=== PATIENT | male | born 1995 | race Caucasian/White ===

== ENCOUNTER 2019-07-10 01:05 | Emergency (ER) | payer OTHER ==
[~2019-07-10] VITALS: Ht 167.6 cm; Wt 86.2 kg
[2019-07-10 01:05] VITALS: BP 152/83
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
--- NOTE | 2019-07-10 01:05 | NUR ---
AMBUATED TO [facility]. ACCOMPANIED BY [facility].
[2019-07-10 01:30] VITALS: BP 152/83
--- NOTE | 2019-07-10 01:30 | NUR ---
PATIENT EXAMINED BY DR. YOUNGBLOOD. PATIENT MEDICALLY CLEARED AND RELEASED IN CUSTODY IN STABLE CONDITION. ORIGINAL PRE-BOOK FORM GIVEN TO [facility] OFFICER.
== END 2019-07-10 01:30 ==
LOC: MED 01:05
DX: S30.811A Abrasion of abdominal wall, initial encounter (principal); J45.909 Unspecified asthma, uncomplicated; V49.49XA Driver injured in collision with other motor vehicles in traffic accident, initial encounter; Y93.89 Activity, other specified; Y92.488 Other paved roadways as the place of occurrence of the external cause; Y99.8 Other external cause status
CPT/HCPCS: 99283